=== PATIENT | female | born 1985 | race Caucasian/White ===

== ENCOUNTER 2018-10-29 17:10 | Outpatient (REF) | payer BC, SELFPAY ==
--- NOTE | 2018-10-29 16:10 | PAPFT_PTH ---
PATIENT: RONY ROBERTO LOC: [facility] U#:[id number] AGE/SX: 33/F ROOM: RE10/29/[address]: Amalia Jeter CNM : 1985 BED: DIS: 10/29/2018 SPEC #: [id number] RECD: 10/29/18 17:14 STATUS: MARLEY REQ #: [id number] [place]: 10/29/18 16:[address]: Amalia eJter DEPT: [facility] Cytology RECD BY: Miracle Ngo ENTERED: 10/29/18 17:14 SP TYPE: PAPFT OTHR DR: Brenda Clemente Tissues: 1 - CX/ENDOCX FOR PAP SMEARS Procedures: PAP THIN PREP/UVM Screening HPV DNA PROBE Comments: [id number]
[2018-10-29 22:32] LABS: *AMPHETAMINES SCREEN URINE Negative (Negative); *BARBITURATES SCREEN URINE Negative (Negative); *BENZODIAZEPINES SCREEN URINE Negative (Negative); Cannabinoids THC Negative (Negative); Cocaine Screen,Urine Negative (Negative); METHADONE URINE SCREEN Negative (Negative); OPIATES URINE SCREEN Negative (Negative)
[2018-10-29 22:36] LABS: Tricyclic Antidepressants Negative (Negative)
[2018-11-01 14:25] LABS: Chlamydia Result Negative; GC Result Negative
[2018-11-05 15:29] LABS: Buprenorphine Negative; Norbuprenorphine Negative
== END 2018-10-29 17:30 ==
LOC: LBN 17:10
PROVIDERS: PCP Physician Assistant; Visit Provider Advanced Practice Midwife
DX: Z34.91 Encounter for supervision of normal pregnancy, unspecified, first trimester (principal); Z12.4 Encounter for screening for malignant neoplasm of cervix; Z11.51 Encounter for screening for human papillomavirus (HPV); Z11.3 Encounter for screening for infections with a predominantly sexual mode of transmission
CPT/HCPCS: 80307; 87491; 87591; 88142; 87086; 87624

== ENCOUNTER 2018-11-26 15:37 | Outpatient (CLI) | payer BC, SELFPAY ==
[2018-11-26 16:34] LABS: Abs Immature Grans 0.03 k/cumm (0.0-0.09); Absolute Basophil Count 0.02 k/cumm (0.0-0.2); Absolute Lymphocyte Count 0.98 k/cumm (1.2-3.4); Absolute Neutrophil Count 6.58 k/cumm (1.2-6.7); Basophils % 0.2; HCT 40.3 % (36.0-46.0); HGB 13.6 g/dL (12.0-15.5); Immature Grans % 0.4; Lymphocytes % 12.2; Mean Corp. HGB Concentration 33.7 g/dL (32.0-36.0); Mean Corpuscular Hemoglobin 31.2 pg (27.0-33.0); Mean Corpuscular Volume 92.4 fL (80-95); Mean Platelet Volume 9.5 fL (8.0-11.0); Neutrophils % 82.2; Platelet Count 273 x1000/uL (130-400); RBC 4.36 m/cumm (4.00-5.20); RBC Distribution Width 13.2 % (11.7-14.6); White Blood Cell Count 8.01 k/cumm (4.4-10.8)
[2018-11-29 09:29] LABS: Hepatitis B Surface Ag Negative (NEGAT)
[2018-11-29 09:34] LABS: HIV-1/2 Ag & Ab Screen Negative (NEGAT); Hepatitis C Ab w Rflx HCV PCR Negative (NEGAT)
[2018-11-29 10:58] LABS: Varicella IgG Antibody Positive
[2018-11-29 11:28] LABS: Rubella IgG Ab (UVM) Positive; Syphilis Serology (RPR) Negative (Negative)
[2018-11-30 15:24] LABS: AFP 60.8 ng/mL; Calculated age at EDD 31 years; Cigarette smoking status non-smoker; GA used in risk estimate Scan estimate; INHIBIN 189 pg/mL; IVF Pregnancy No; Initial or repeat testing Initial testing; Insulin dependent diabetes No; Maternal Weight 139 lbs; Number of Fetuses 1; Prev Down(T21)/Trisomy Pregnan No; Prev Pregnancy w/NTD No; RECOMMENDED FOLLOW UP None.; Results Summary Normal risk; hCG, TOTAL 25.6 IU/mL; hCG, TOTAL MoM 0.79 MoM; uE3 MoM 0.45 MoM
== END 2018-11-26 15:57 ==
PROVIDERS: Advanced Practice Midwife; PCP Physician Assistant; Visit Provider Advanced Practice Midwife
DX: Z34.92 Encounter for supervision of normal pregnancy, unspecified, second trimester (principal); Z36.89 Encounter for other specified antenatal screening; Z11.4 Encounter for screening for human immunodeficiency virus [HIV]; Z11.59 Encounter for screening for other viral diseases
CPT/HCPCS: 80055; 81511; 86787; 86803; 86850; 86900; 86901; 87340; 87389; 86592; 86762

== ENCOUNTER 2018-12-23 00:36 | Outpatient (CLI) | payer BC, SELFPAY ==
--- NOTE | 2018-12-23 14:04 | DI.US_ITS ---
SYMPTOM/DIAGNOSIS: ROUTINE [facility], Z34.90, SURVEY OB ULTRASOUND: The fetus is in variable position during the exam. The placenta is anterior. The biometric measurements correspond to 20 weeks 0 days, consistent with previous dating. An echogenic focus is seen in the left ventricle which could represent normal papillary muscle. No additional abnormalities are seen. The amniotic fluid amount appears normal. IMPRESSION: size is within normal limits. A small echogenic focus is noted in the left ventricle. Many abnormalities cannot be diagnosed. A normal exam does not exclude a congenital anomaly. Radiology No. [id number] LMP: 08/05/18 Exam Date: 12/23/18 [facility] wks days on EDC ([facility]) 05/12/19 Confirmed: HISTORY: survey PREDICTED GESTATIONAL AGE NUMBER 20 weeks with a range of 19 week to 21 weeks. 1 Determined by___1STUS___LMP___HISTORY Info. pertaining to fetus # PLACENTA PRESENTATION Grade 0-I Cephalic___ Anterior_XX__Posterior___ Breech____ Right Left Transverse(head right___ Fundal___Low-lying___Previa___ Transverse(head left___ Varying__XX____ BIOMETRY AMNIOTIC FLUID BPD: 45 mm 19 +4 weeks Normal HC: 179 mm 20 +2 weeks AC: 147 mm 20 weeks FL: 32 mm 19 +6 weeks AMNIOTIC FLUID INDEX >26 WK CRL: mm weeks Cisterna Magna: 5.2 mm CI: 75 RUQ: LUQ Cerebellum: 2.0 cm EFW: 323 grams -- Percentile RLQ: LLQ Total: cms Composite AGE= 20 wks EDC by US__05/12/19 BIOPHYSICAL PROFILE ANATOMY IDENTIFIED SCORE 0/2 Heart: 4-Chamber_XX__Rate:BPM__149 BPM___ LVOT:___X RVOT:____X____ Amniotic Fluid(>2cms)____ Stomach:__X Kidneys:__X Respirations (>30 secs) Bladder: X__ Post. Fossa:___X Body Flex/Extension 3 vessel cord:__X Ventricles:___X cord insertion:__X___ Lips:__X__ Extremity Flex/Extension spinal morphology:___X Nose:X Total Score= Palate:_X XX Lower limbs NS=not seen
== END 2018-12-23 00:56 ==
PROVIDERS: PCP Internal Medicine; Visit Provider Advanced Practice Midwife
DX: Z34.92 Encounter for supervision of normal pregnancy, unspecified, second trimester (principal)
CPT/HCPCS: 76805

== ENCOUNTER 2019-02-25 02:26 | Outpatient (CLI) | payer BC, SELFPAY ==
--- NOTE | 2019-02-25 13:15 | DI.US_ITS ---
SYMPTOMS/DIAGNOSIS: F/U HEART, ECHOGENIC FOCI OB ULTRASOUND, LIMITED: Many abnormalities cannot be diagnosed. A normal exam does not exclude a congenital anomaly. Radiology No. [id number] LMP: Exam Date: 02/25/19 [facility] wks days on EDC ([facility]) 05/12/19 Confirmed: HISTORY: PREDICTED GESTATIONAL AGE NUMBER 29+1 weeks with a range of 28+1 weeks to 30+1 weeks. 1 Determined by___1STUS___LMP___HISTORY PLACENTA PRESENTATION Grade 0-I Cephalic___ Anterior___Posterior___ Breech_X___ Right Left Transverse(head right___ Fundal___Low-lying___Previa___ Transverse(head left___ Varying BIOMETRY AMNIOTIC FLUID BPD: mm weeks Normal HC: mm weeks Oligo Polyhydramnios AC: mm weeks FL: mm weeks AMNIOTIC FLUID INDEX >26 WK CRL: mm weeks Cisterna Magna: mm CI: RUQ: LUQ Cerebellum: cm EFW: grams Percentile RLQ: LLQ Total: cms Composite AGE= wks EDC by US BIOPHYSICAL PROFILE ANATOMY IDENTIFIED SCORE 0/2 Heart: 4-Chamber_X__Rate:BPM 147 LVOT: RVOT: Amniotic Fluid(>2cms)____ Stomach: Kidneys: Respirations (>30 secs) Bladder: Post. Fossa: Body Flex/Extension 3 vessel cord: Ventricles: cord insertion: Lips:____ Extremity Flex/Extension spinal morphology: Nose: Total Score= Palate: NS=not seen COMMENTS: OB ultrasound was performed utilizing limited protocol to confirm left ventricular cardiac echogenic focus as identified on previous study of 12/23/18. Today's examination confirms a single cardiac echogenic focus measuring about 3 mm.
== END 2019-02-25 02:46 ==
PROVIDERS: PCP Internal Medicine; Visit Provider Advanced Practice Midwife
DX: Z34.93 Encounter for supervision of normal pregnancy, unspecified, third trimester (principal); Z36.2 Encounter for other antenatal screening follow-up
CPT/HCPCS: 76815

== ENCOUNTER 2019-02-25 15:01 | Outpatient (CLI) | payer BC, SELFPAY ==
[2019-02-25 15:16] LABS: HCT 39.8 % (36.0-46.0); HGB 13.3 g/dL (12.0-15.5); Mean Corp. HGB Concentration 33.4 g/dL (32.0-36.0); Mean Corpuscular Hemoglobin 31.4 pg (27.0-33.0); Mean Corpuscular Volume 94.1 fL (80-95); Mean Platelet Volume 9.3 fL (8.0-11.0); Platelet Count 259 x1000/uL (130-400); RBC 4.23 m/cumm (4.00-5.20); RBC Distribution Width 13.1 % (11.7-14.6); White Blood Cell Count 8.53 k/cumm (4.4-10.8)
[2019-02-25 15:29] LABS: Glucose,1 Hr (Glucola) 169 mg/dL (80-140)
== END 2019-02-25 15:21 ==
PROVIDERS: PCP Internal Medicine; Visit Provider Advanced Practice Midwife
DX: Z34.92 Encounter for supervision of normal pregnancy, unspecified, second trimester (principal)
CPT/HCPCS: 36415; 82950; 85027

== ENCOUNTER 2019-03-03 07:46 | Outpatient (CLI) | payer BC, SELFPAY ==
[2019-03-03 09:42] LABS: Glucose 1 Hour 142 mg/dL
[2019-03-03 11:51] LABS: Glucose 3 Hour 87 mg/dL
== END 2019-03-03 08:06 ==
PROVIDERS: PCP Internal Medicine; Visit Provider Advanced Practice Midwife
DX: R73.9 Hyperglycemia, unspecified (principal)
CPT/HCPCS: 36410; 82951

== ENCOUNTER 2019-03-16 00:34 | Outpatient (CLI) | payer BC, SELFPAY ==
--- NOTE | 2019-03-16 10:25 | DI.US_ITS ---
SYMPTOMS/DIAGNOSIS: RT HYDRONEPHROSIS, N13.30 RENAL ULTRASOUND: The right kidney measures 14 cm. There is mild hydronephrosis which appears stable. Multiple renal stones are identified. The largest measuring up to 1.1 cm. The left kidney measures 16.2 cm and is unremarkable. The prevoid bladder contains 456 cc's. Bilateral ureteral jets are visualized. The postvoid bladder contains 22 cc's. SUMMARY: Mild right hydronephrosis appears stable. There is right nephrolithiasis. The examination is otherwise unremarkable.
== END 2019-03-16 00:54 ==
PROVIDERS: PCP Internal Medicine; Visit Provider Nurse Practitioner Gerontology
DX: N13.30 Unspecified hydronephrosis (principal); N20.0 Calculus of kidney
CPT/HCPCS: 76770

== ENCOUNTER 2019-04-15 16:45 | Outpatient (REF) | payer BC, SELFPAY ==
[2019-04-15 19:14] LABS: *AMPHETAMINES SCREEN URINE Negative (Negative); *BARBITURATES SCREEN URINE Negative (Negative); *BENZODIAZEPINES SCREEN URINE Negative (Negative); Cannabinoids THC Negative (Negative); Cocaine Screen,Urine Negative (Negative); METHADONE URINE SCREEN Negative (Negative); OPIATES URINE SCREEN Negative (Negative)
[2019-04-15 19:34] LABS: Tricyclic Antidepressants POSITIVE (Negative)
[2019-04-21 11:56] LABS: Buprenorphine Negative; Norbuprenorphine Negative
== END 2019-04-15 17:05 ==
LOC: LBN 16:45
PROVIDERS: PCP Internal Medicine; Visit Provider Advanced Practice Midwife
DX: Z34.93 Encounter for supervision of normal pregnancy, unspecified, third trimester (principal); Z36.85 Encounter for antenatal screening for Streptococcus B
CPT/HCPCS: 80307; 87081

== ENCOUNTER 2019-04-22 22:18 | Outpatient (REF) | payer BC, SELFPAY ==
[2019-04-22 18:13] LABS: *AMPHETAMINES SCREEN URINE Negative (Negative); *BARBITURATES SCREEN URINE Negative (Negative); *BENZODIAZEPINES SCREEN URINE Negative (Negative); Cannabinoids THC Negative (Negative); Cocaine Screen,Urine Negative (Negative); METHADONE URINE SCREEN Negative (Negative); OPIATES URINE SCREEN Negative (Negative)
[2019-04-22 18:14] LABS: Tricyclic Antidepressants Negative (Negative)
[2019-04-27 14:41] LABS: Buprenorphine Negative; Norbuprenorphine Negative
== END 2019-04-22 22:38 ==
LOC: LBN 22:18
PROVIDERS: PCP Internal Medicine; Visit Provider Advanced Practice Midwife
DX: Z34.92 Encounter for supervision of normal pregnancy, unspecified, second trimester (principal)
CPT/HCPCS: 80307

== ENCOUNTER 2019-04-25 14:41 | Outpatient (CLI) | payer BC, SELFPAY | END 2019-04-25 15:01 | PROVIDERS: PCP Internal Medicine; Visit Provider Advanced Practice Midwife | DX: O9A.213 Injury, poisoning and certain other consequences of external causes complicating pregnancy, third trimester (principal); W19.XXXA Unspecified fall, initial encounter; Z3A.37 37 weeks gestation of pregnancy | CPT/HCPCS: 59025 ==

== ENCOUNTER 2019-05-06 08:35 | Inpatient (IN) | payer BC, SELFPAY ==
[2019-05-06] MEDS: Lactated Ringers 1,000 ML 125 ML IV (09:40)
[2019-05-06 09:48] LABS: HCT 38.4 % (36.0-46.0); HGB 12.9 g/dL (12.0-15.5); Mean Corp. HGB Concentration 33.6 g/dL (32.0-36.0); Mean Corpuscular Volume 95.3 fL (80-95); Mean Platelet Volume 10.5 fL (8.0-11.0); Platelet Count 216 x1000/uL (130-400); RBC 4.03 m/cumm (4.00-5.20); RBC Distribution Width 13.5 % (11.7-14.6); White Blood Cell Count 7.87 k/cumm (4.4-10.8)
[2019-05-06] MEDS: Terbutaline 1 MG/ML VIAL 0.25 MG SC (09:54)
[2019-05-06] MEDS: miSOPROStol 25 MCG TAB PO ×3 (11:32→19:30)
[2019-05-07] MEDS: Zolpidem 5 MG TAB 10 MG PO (00:10)
[2019-05-07] MEDS: miSOPROStol 50 MCG TAB PO (08:08)
[2019-05-07] MEDS: Normal Saline Flush 10 ML SYR IVP (08:10)
--- NOTE | 2019-05-13 10:30 | ROE_ITS ---
DATE OF PROCEDURE: May 06, 2019 PREOPERATIVE DIAGNOSIS: Unstable transverse lie. POSTOPERATIVE DIAGNOSIS: Same. PROCEDURE: External cephalic version. SURGEON: Laisha Barahona M.D. ANESTHESIA: None. COMPLICATIONS: None. ESTIMATED BLOOD LOSS: None. FINDINGS: Vertex presentation at end of procedure. PROCEDURE: The patient was taken to the OB Procedure Room. An ultrasound was performed and the fetu s was in the transverse lie with vertex on right. There was adequate fluid with an anterior placenta . A NST was performed and was reactive. The patient was informed of the risks, benefits and alterna tives and consent was signed. An IV was started and the patient was given terbutaline. Then, under ultrasound guidance, an external rotation was performed in the clockwise fashion until the infant was in the vertex presentation. doptones were done after the procedure and were reassuring. The patient tolerated the procedure well and it was discussed with the patient to undergo induction of la bor to prevent reversion to transverse lie.
== END 2019-05-07 12:50 | disposition home or self-care (01) | DRG 833 ==
PROVIDERS: Admitting Provider Obstetrics & Gynecology; PCP Internal Medicine; Visit Provider Obstetrics & Gynecology
DX: O32.0XX0 Maternal care for unstable lie, not applicable or unspecified (principal); O99.613 Diseases of the digestive system complicating pregnancy, third trimester; Z3A.39 39 weeks gestation of pregnancy; K21.9 Gastro-esophageal reflux disease without esophagitis
CPT/HCPCS: 59412; 76815; 36415; 85027; 86850; 86900; 86901; 59200; G0378; J3490

== ENCOUNTER 2019-05-19 15:03 | Outpatient (CLI) | payer BC, SELFPAY | END 2019-05-19 15:23 | PROVIDERS: PCP Internal Medicine; Visit Provider Advanced Practice Midwife | DX: O48.0 Post-term pregnancy (principal); Z3A.41 41 weeks gestation of pregnancy | CPT/HCPCS: 59025; 76819 ==

== ENCOUNTER 2019-05-20 16:31 | Inpatient (IN) | payer BC, SELFPAY ==
[2019-05-20] MEDS: miSOPROStol 25 MCG TAB 50 MCG PO ×2 (17:06→21:02)
[2019-05-20 17:14] LABS: HCT 35.4 % (36.0-46.0); HGB 11.9 g/dL (12.0-15.5); Mean Corp. HGB Concentration 33.6 g/dL (32.0-36.0); Mean Corpuscular Hemoglobin 31.9 pg (27.0-33.0); Mean Corpuscular Volume 94.9 fL (80-95); Mean Platelet Volume 10.5 fL (8.0-11.0); Platelet Count 229 x1000/uL (130-400); RBC 3.73 m/cumm (4.00-5.20); RBC Distribution Width 13.5 % (11.7-14.6); White Blood Cell Count 7.61 k/cumm (4.4-10.8)
[2019-05-20] MEDS: hydrOXYzine HCL 25 MG TAB PO (22:42)
[2019-05-21] MEDS: miSOPROStol 25 MCG TAB 50 MCG PO ×2 (01:00→05:00)
[2019-05-21] MEDS: miSOPROStol 25 MCG TAB VG ×2 (10:35→15:45)
[2019-05-21] MEDS: Acetaminophen 500 MG TAB 1000 MG PO (12:12)
[2019-05-22] MEDS: Ibuprofen 600 MG TAB PO ×4 (00:20→19:55)
[2019-05-22] MEDS: Acetaminophen 325 MG TAB 650 MG PO ×3 (06:00→15:25)
[2019-05-22 08:09] LABS: HCT 34.3 % (36.0-46.0); HGB 11.7 g/dL (12.0-15.5); Mean Corp. HGB Concentration 34.1 g/dL (32.0-36.0); Mean Corpuscular Hemoglobin 32.4 pg (27.0-33.0); Mean Platelet Volume 10.4 fL (8.0-11.0); Platelet Count 221 x1000/uL (130-400); RBC 3.61 m/cumm (4.00-5.20); RBC Distribution Width 13.5 % (11.7-14.6)
[2019-05-23] MEDS: Ibuprofen 600 MG TAB PO (11:16)
[2019-05-23] MEDS: Acetaminophen 325 MG TAB 650 MG PO (11:17)
== END 2019-05-23 14:40 | disposition home or self-care (01) | DRG 807 ==
PROVIDERS: Admitting Provider Advanced Practice Midwife; PCP Internal Medicine; Visit Provider Advanced Practice Midwife
DX: O48.0 Post-term pregnancy (principal); Z37.0 Single live birth; Z3A.41 41 weeks gestation of pregnancy; O69.81X0 Labor and delivery complicated by cord around neck, without compression, not applicable or unspecified; O76 Abnormality in fetal heart rate and rhythm complicating labor and delivery; O70.0 First degree perineal laceration during delivery; O99.62 Diseases of the digestive system complicating childbirth; Z67.40 Type O blood, Rh positive
CPT/HCPCS: 36415; 85027; 86850; 86900; 86901; 59200; J3490